=== PATIENT | male | born 1985 | race Two or more races ===

== ENCOUNTER 2019-11-19 09:07 | Emergency (ER) | payer SELFPAY ==
[~2019-11-19] VITALS: Ht 172.7 cm; Wt 81.6 kg
--- NOTE | 2019-11-19 09:11 | Emergency Room Report ---
History of Present Illness General Chief Complaint: Medical Clearance Source: Patient Present Illness HPI Disclaimer: Please note that this report is being documented using [employer] technology. This can lead to erroneous entry secondary to incorrect interpretation by the dictating instrument. HPI: 34-year-old male presents in police custody for medical clearance prior to booking complaining of right ankle pain and swelling. Patient states he twisted his ankle during the arrest and noted pain over the lateral and medial malleolus of the right ankle with lateral swelling. Able to dorsiflex and plantarflex and bear weight though it is painful. Pain is currently a 5/10 and nonradiating. Denies pain in the midfoot or in the toes. No injury to the ankle. He sustained an abrasion over the medial malleolus of the left ankle but denies pain or swelling in that joint. Tetanus was updated 1 year ago. Has not taken any medication prior to arrival. No prior history of ankle injury or surgery over the lower extremities. PMH: Denies PSH: Denies Allergies: Denies Social Hx: Denies Allergies: Coded Allergies: No Known Allergies (Unverified , 11/19/19) Review of Systems All Other Systems: negative except mentioned in HPI Physical Exam General: Awake and alert, no acute distress HEENT: NC/AT. EOMI. Resp: Normal work of breathing Skin: Intact. Small abrasion approximately 1 cm in diameter over the medial malleolus without edema, no bleeding, no drainage MSK: Normal tone and bulk. Moving all extremities. Moderate edema over the right lateral malleolus with tenderness palpation over the anterior and posterior aspect. There is tenderness palpation over the anterior and posterior medial malleolus as well on the right ankle though no significant swelling. No tenderness in the midfoot. Able to plantarflex, dorsiflex, invert and forrest the right ankle. Neuro: Awake and alert. Mentating appropriately Medical Decision Making Diagnostic Impression: Primary Impression: Ankle sprain Additional Impression: Abrasion ER Course 34-year-old male presents for evaluation of right ankle pain and swelling after a twisting injury during the course of his arrest. History and physical exam consistent with strain, sprain, fracture, dislocation. X-ray was obtained but no evidence of fracture or dislocation. Likely a sprain and the patient was placed in an John wrap for comfort and support. Referred to orthopedic surgery for follow-up as needed. Offered NSAIDs but patient declined. Abrasion on the left ankle was cleaned and bandaged; tetanus is up-to-date. Can follow-up on an outpatient basis. Return precautions discussed. He understands and agrees with treatment plan. Discharged to law enforcement custody. Other X-Ray Diagnostic Results Other X-Ray Diagnostic Results : X-Ray ordered: Right ankle # of Views/Limited Vs Complete: Complete Indication: Pain EP Interpretation: Yes Interpretation: no dislocation, no fractures, other - Soft tissue swelling without obvious fracture dislocation Impression: Other - Soft tissue swelling. No definitive fracture or dislocation Electronically Signed by: Electronically signed by Dr. Lv Watkins Disposition: LAW ENFORCEMENT IN CUST Condition: Stable Lv Watkins MD Nov 19, 2019 09:11
--- NOTE | 2019-11-19 09:15 | NUR ---
ED Nurse Note: PT. BROUGHT IN BY [employer] DUE TO PUBLIC DRINKING. PER [employer] OFFICER, PT. IS NOT SURE HOW HE HURT HIS R ANKLE. R ANKLE IS NOTED SWOLLEN AND HAS ABRASION ON THE L-ANKLE
[2019-11-19 09:30] VITALS: BP 127/73
--- NOTE | 2019-11-19 09:31 | NUR ---
ED Nurse Note: Pt cleared by health care Provider for discharge. ANGELIKA wrapped by EMANUEL [place]. DC instructions/prescription was given and explained to pt and verbalized understanding of teachings. All medical deviecs such as ID band removed. Pt is AAO x4, ambulatory and left with all personal belongings with two educational administrator.NAD noted
--- NOTE | 2019-11-19 11:01 | Diagnostic Imaging Report ---
Indication: Reason For Exam: INJ Technique: 3 views of the right ankle Comparison: none Findings: There is soft tissue swelling over the lateral malleolus. On the lateral view, there is suggestion of cortical irregularity of the lateral malleolus at the metadiaphysis as well as the posterior cortical surface. No other acute fractures. No dislocations. Joint spaces are preserved Impression: Slight cortical irregularity of the posterior malleolus on the lateral view, fracture doubtful but not completely excludable. Correlate with clinical findings Evidence of lateral soft tissue injury Findings discussed by phone with Dr. Watkins at the time of interpretation
== END 2019-11-19 09:31 ==
LOC: EMR 09:15
DX: S93.401A Sprain of unspecified ligament of right ankle, initial encounter (principal); S90.511A Abrasion, right ankle, initial encounter; X50.1XXA Overexertion from prolonged static or awkward postures, initial encounter; Y92.9 Unspecified place or not applicable
CPT/HCPCS: 99283